=== PATIENT | female | born 1975 | race Caucasian/White ===

== ENCOUNTER 2017-04-08 01:19 | Inpatient (IN) | payer OTHER ==
[~2017-04-08] VITALS: Ht 165.1 cm; Wt 110.7 kg
[2017-04-08 02:00] VITALS: BP_SYST 139
[2017-04-08] MEDS ORDERED: ONDANSETRON HCL 4 MG/2 ML VIAL IVP ONE (02:15)
[2017-04-08] MEDS ORDERED: KETOROLAC TROMETHAMINE 30 MG VIAL IVP ONE (02:15)
[2017-04-08] MEDS ORDERED: NACL 0.9% 1,000 ML IV ONE ×2 (02:15→03:30)
[2017-04-08 02:53] LABS: BASOPHILS # (AUTO) 0.2 K/uL (0.0-0.2); BASOPHILS % (AUTO) 2.8 % (0.0-2.0); EOSINOPHILS # (AUTO) 0.1 K/uL (0.0-0.4); EOSINOPHILS % (AUTO) 1.6 % (0.0-4.0); HEMATOCRIT 42.4 % (36-48); HEMOGLOBIN 14.2 g/dL (12.0-16.0); LYMPHOCYTES % (AUTO) 27.1 % (20.5-51.5); MEAN CORPUSCULAR HEMOGLOBIN 30 pg (27-31); MEAN CORPUSCULAR HGB CONC 34 % (32-36); MEAN CORPUSCULAR VOLUME 90 fL (79.0-98.0); MONOCYTES # (AUTO) 0.5 K/uL (0.0-1.0); MONOCYTES % (AUTO) 6.5 % (1.7-9.3); NEUTROPHILS # (AUTO) 4.5 K/uL (1.8-7.7); PLATELET COUNT (AUTO) 316 K/uL (130-430); RED BLOOD CELL COUNT(AUTO) 4.72 MIL/uL (4.2-6.2); RED CELL DISTRIBUTION WIDTH 11.8 % (9.0-15.0); WHITE BLOOD COUNT (AUTO) 7.3 K/uL (4.8-10.8)
[2017-04-08 02:55] LABS: BILIRUBIN,URINE NEGATIVE (NEGATIVE); BLOOD, URINE 2+ (NEGATIVE); CLARITY/URINE CLEAR (CLEAR); COLOR,URINE YELLOW (YELLOW); GLUCOSE,URINE 3+ (NEGATIVE); KETONES,URINE NEGATIVE (NEGATIVE); LEUKOCYTE ESTERASE ,URINE NEGATIVE (NEGATIVE); NITRITE, URINE NEGATIVE (NEGATIVE); PH,URINE 6.5 (5.0-8.0); PROTEIN URINE NEGATIVE (NEGATIVE); UROBILINOGEN,URINE 0.2 (0.2-1.0)
[2017-04-08 03:05] LABS: CALCIUM 9.2 mg/dL (8.4-11.0); CREATININE 1.08 mg/dL (0.55-1.30); POTASSIUM 4.3 mmol/L (3.5-5.1)
[2017-04-08 03:07] LABS: PROTHROMBIN TIME 10.4 SECS (9.5-12.5)
[2017-04-08 03:08] LABS: ALBUMIN 3.4 g/dL (3.4-4.8); TOTAL BILIRUBIN 0.4 mg/dL (0.0-1.0)
[2017-04-08 03:16] LABS: BACTERIA,URINE FEW /HPF (None Seen); MUCUS,URINE None Seen /LPF (None Seen); YEAST,URINE Rare /HPF (None Seen)
[2017-04-08 03:17] LABS: BARBITURATE, URINE NEGATIVE (NEG <=200); BENZODIAZEPINE, URINE NEGATIVE (NEG <=150); CANNABINOID, URINE NEGATIVE (NEG <=50); COCAINE, URINE NEGATIVE (NEG <=150); METHAMPHETAMINES SCREEN,URINE POSITIVE (NEG <=500); OPIATE, URINE NEGATIVE (NEG <=100); PHENCYCLIDINE SCREEN,URINE NEGATIVE (NEG <=25); UR TRICYCLIC ANTIDEPRESSANTS NEGATIVE (NEG <=300); URINE AMPHETAMINE POSITIVE (NEG <=500); URINE METHADONE NEGATIVE (NEG <=200); URINE OXYCODONE SCREEN NEGATIVE (NEG <=100); URINE PROPOXYPHENE SCREEN NEGATIVE (NEG <=300)
[2017-04-08] MEDS ORDERED: LEVOFLOXACIN 500 MG/D5W 100 ML IV ONE (03:30)
[2017-04-08] MEDS ORDERED: INSULIN REGULAR, HUMAN 10 UNITS/0.1 ML INJ IVP ONE (03:30)
[2017-04-08 05:01] VITALS: BP_SYST 142
[2017-04-08] MEDS: cefTRIAXone 1 GM IVPB PREMIX 50 ML IV SCH (06:00)
[2017-04-08] MEDS ORDERED: cefTRIAXone 1 GM IVPB PREMIX 50 ML IV ONE (06:01)
[2017-04-08] MEDS: NACL 0.9% 1,000 ML IV SCH ×3 (06:22→17:50)
[2017-04-08] MEDS: INSULIN REGULAR, HUMAN 100 UNITS/ML, 10 ML VIAL (novoLIN R) SUBCUT PRN ×4 (06:25→21:48)
[2017-04-08] MEDS ORDERED: INSULIN REGULAR, HUMAN 100 UNITS/ML, 10 ML VIAL SUBCUT ONE ×2 (06:30→10:45)
[2017-04-08 08:00] VITALS: BP_SYST 130
[2017-04-08] MEDS ORDERED: DIPHENHYDRAMINE INJ 50 MG/ML VIAL IVP PRN (10:45)
[2017-04-08] MEDS ORDERED: traMADol HCL HCL 50 MG TABLET (ULTRAM) PO PRN (11:00)
[2017-04-08 11:43] VITALS: BP_SYST 130
[2017-04-08 12:33] LABS: CALCIUM 9.2 mg/dL (8.4-11.0); CREATININE 0.86 mg/dL (0.55-1.30)
[2017-04-08 16:12] VITALS: BP_SYST 123
[2017-04-08] MEDS: ACETAMINOPHEN 325 MG TABLET PO PRN (16:46)
[2017-04-08] MEDS: metFORMIN HCL 500 MG TABLET PO SCH (18:54)
[2017-04-08 19:30] VITALS: BP_SYST 118
[2017-04-09 00:09] VITALS: BP_SYST 123
[2017-04-09] MEDS: NACL 0.9% 1,000 ML IV SCH ×2 (02:26→07:10)
[2017-04-09] MEDS: INSULIN REGULAR, HUMAN 100 UNITS/ML, 10 ML VIAL (novoLIN R) SUBCUT PRN ×6 (02:27→22:45)
[2017-04-09 04:20] VITALS: BP_SYST 138
[2017-04-09] MEDS: cefTRIAXone 1 GM IVPB PREMIX 50 ML IV SCH (05:28)
[2017-04-09] MEDS: traMADol HCL HCL 50 MG TABLET (ULTRAM) PO PRN ×2 (05:44→21:16)
[2017-04-09 07:38] LABS: BASOPHILS % (AUTO) 0.6 % (0.0-2.0); EOSINOPHILS # (AUTO) 0.1 K/uL (0.0-0.4); EOSINOPHILS % (AUTO) 2.7 % (0.0-4.0); HEMATOCRIT 38.9 % (36-48); HEMOGLOBIN 13.3 g/dL (12.0-16.0); LYMPHOCYTES # (AUTO) 1.8 K/uL (1.0-5.5); LYMPHOCYTES % (AUTO) 34.5 % (20.5-51.5); MEAN CORPUSCULAR HEMOGLOBIN 30 pg (27-31); MEAN CORPUSCULAR HGB CONC 34 % (32-36); MEAN CORPUSCULAR VOLUME 89 fL (79.0-98.0); MONOCYTES # (AUTO) 0.3 K/uL (0.0-1.0); MONOCYTES % (AUTO) 5.9 % (1.7-9.3); NEUTROPHILS % (AUTO) 56.3 % (40.0-70.0); PLATELET COUNT (AUTO) 273 K/uL (130-430); RED BLOOD CELL COUNT(AUTO) 4.36 MIL/uL (4.2-6.2); WHITE BLOOD COUNT (AUTO) 5.2 K/uL (4.8-10.8)
[2017-04-09 08:01] LABS: ALBUMIN 2.8 g/dL (3.4-4.8); CALCIUM 7.9 mg/dL (8.4-11.0); CREATININE 0.66 mg/dL (0.55-1.30); POTASSIUM 3.7 mmol/L (3.5-5.1); THYROID STIMULATING HORMONE 1.39 uIu/mL (0.34-4.82); TOTAL BILIRUBIN 0.2 mg/dL (0.0-1.0); TOTAL PROTEIN, SERUM 6.9 g/dL (6.4-8.3)
[2017-04-09] MEDS: metFORMIN HCL 500 MG TABLET PO SCH ×2 (08:02→17:52)
[2017-04-09 08:31] VITALS: BP_SYST 137
[2017-04-09 11:48] VITALS: BP_SYST 134
[2017-04-09] MEDS ORDERED: ATORVASTATIN 10 MG TABLET PO SCH (13:00)
[2017-04-09] MEDS ORDERED: ATORVASTATIN 10 MG TABLET PO ONE (14:30)
[2017-04-09 15:32] VITALS: BP_SYST 125
[2017-04-09 19:35] VITALS: BP_SYST 148
[2017-04-10 00:22] VITALS: BP_SYST 158
[2017-04-10] MEDS: INSULIN REGULAR, HUMAN 100 UNITS/ML, 10 ML VIAL (novoLIN R) SUBCUT PRN ×5 (03:03→21:09)
[2017-04-10 05:13] VITALS: BP_SYST 158
[2017-04-10] MEDS: cefTRIAXone 1 GM IVPB PREMIX 50 ML IV SCH ×2 (05:37→06:00)
[2017-04-10] MEDS: traMADol HCL HCL 50 MG TABLET (ULTRAM) PO PRN (06:12)
[2017-04-10 07:33] LABS: BASOPHILS % (AUTO) 0.6 % (0.0-2.0); EOSINOPHILS # (AUTO) 0.2 K/uL (0.0-0.4); EOSINOPHILS % (AUTO) 2.8 % (0.0-4.0); HEMATOCRIT 41.2 % (36-48); HEMOGLOBIN 13.8 g/dL (12.0-16.0); LYMPHOCYTES # (AUTO) 2.3 K/uL (1.0-5.5); LYMPHOCYTES % (AUTO) 35.8 % (20.5-51.5); MEAN CORPUSCULAR HEMOGLOBIN 30 pg (27-31); MEAN CORPUSCULAR HGB CONC 34 % (32-36); MEAN CORPUSCULAR VOLUME 89 fL (79.0-98.0); MONOCYTES # (AUTO) 0.4 K/uL (0.0-1.0); MONOCYTES % (AUTO) 5.8 % (1.7-9.3); NEUTROPHILS # (AUTO) 3.5 K/uL (1.8-7.7); PLATELET COUNT (AUTO) 276 K/uL (130-430); RED BLOOD CELL COUNT(AUTO) 4.61 MIL/uL (4.2-6.2); RED CELL DISTRIBUTION WIDTH 11.9 % (9.0-15.0); WHITE BLOOD COUNT (AUTO) 6.4 K/uL (4.8-10.8)
[2017-04-10 08:26] VITALS: BP_SYST 141
[2017-04-10] MEDS: ATORVASTATIN 10 MG TABLET PO SCH (08:55)
[2017-04-10] MEDS: metFORMIN HCL 500 MG TABLET PO SCH ×2 (08:56→17:37)
[2017-04-10 11:39] VITALS: BP_SYST 147
[2017-04-10] MEDS ORDERED: FLUCONAZOLE 200 MG TABLET (DIFLUCAN) PO ONE (11:45)
[2017-04-10 12:22] LABS: BASOPHILS % (AUTO) 0.6 % (0.0-2.0); EOSINOPHILS # (AUTO) 0.1 K/uL (0.0-0.4); EOSINOPHILS % (AUTO) 2.1 % (0.0-4.0); HEMOGLOBIN 14.2 g/dL (12.0-16.0); LYMPHOCYTES # (AUTO) 1.7 K/uL (1.0-5.5); LYMPHOCYTES % (AUTO) 28.6 % (20.5-51.5); MEAN CORPUSCULAR HEMOGLOBIN 30 pg (27-31); MEAN CORPUSCULAR HGB CONC 34 % (32-36); MEAN CORPUSCULAR VOLUME 89 fL (79.0-98.0); MONOCYTES # (AUTO) 0.3 K/uL (0.0-1.0); MONOCYTES % (AUTO) 4.8 % (1.7-9.3); NEUTROPHILS # (AUTO) 3.8 K/uL (1.8-7.7); NEUTROPHILS % (AUTO) 63.9 % (40.0-70.0); PLATELET COUNT (AUTO) 268 K/uL (130-430); RED BLOOD CELL COUNT(AUTO) 4.71 MIL/uL (4.2-6.2); WHITE BLOOD COUNT (AUTO) 5.9 K/uL (4.8-10.8)
[2017-04-10 12:32] LABS: CALCIUM 8.6 mg/dL (8.4-11.0); CREATININE 0.64 mg/dL (0.55-1.30); POTASSIUM 3.7 mmol/L (3.5-5.1); TOTAL BILIRUBIN 0.4 mg/dL (0.0-1.0); TOTAL PROTEIN, SERUM 7.1 g/dL (6.4-8.3)
[2017-04-10 19:10] VITALS: BP_SYST 126
[2017-04-11 00:52] VITALS: BP_SYST 136
[2017-04-11] MEDS: INSULIN REGULAR, HUMAN 100 UNITS/ML, 10 ML VIAL (novoLIN R) SUBCUT PRN ×6 (03:34→22:13)
[2017-04-11] MEDS: ACETAMINOPHEN 325 MG TABLET PO PRN ×2 (03:43→19:26)
[2017-04-11 04:06] VITALS: BP_SYST 149
[2017-04-11] MEDS: cefTRIAXone 1 GM IVPB PREMIX 50 ML IV SCH (06:00)
[2017-04-11] MEDS: metFORMIN HCL 500 MG TABLET PO SCH ×2 (08:00→18:09)
[2017-04-11] MEDS: FLUCONAZOLE 200 MG TABLET (DIFLUCAN) PO SCH (09:00)
[2017-04-11] MEDS: ATORVASTATIN 10 MG TABLET PO SCH (09:00)
[2017-04-11 12:00] VITALS: BP_SYST 109
[2017-04-11 16:00] VITALS: BP_SYST 145
[2017-04-11 20:00] VITALS: BP_SYST 144
[2017-04-12] VITALS: BP_SYST 141
[2017-04-12] MEDS: INSULIN REGULAR, HUMAN 100 UNITS/ML, 10 ML VIAL (novoLIN R) SUBCUT PRN ×3 (02:58→10:58)
[2017-04-12 04:00] VITALS: BP_SYST 136
[2017-04-12] MEDS: ATORVASTATIN 10 MG TABLET PO SCH (08:23)
[2017-04-12] MEDS: FLUCONAZOLE 200 MG TABLET (DIFLUCAN) PO SCH (08:23)
[2017-04-12] MEDS: metFORMIN HCL 500 MG TABLET PO SCH (08:23)
[2017-04-12 08:25] VITALS: BP_SYST 127
[2017-04-12 12:00] VITALS: BP_SYST 106
[2017-04-12 15:39] VITALS: BP_SYST 145
[2017-04-12 16:00] VITALS: BP_SYST 116
[2017-04-12] MEDS ORDERED: INSU100V7 SUBCUT (16:42)
[2017-04-12] MEDS ORDERED: METF1000 PO (16:43)
[2017-04-12] MEDS ORDERED: GLIP5TAB13 PO (16:43)
[2017-04-12] MEDS ORDERED: LIP10 PO (16:44)
== END 2017-04-12 17:05 | disposition home health service (06) | DRG 420 ==
LOC: SED 01:19 → STU 04:30 → SMU 22:14
PROVIDERS: ADMIT Internal Medicine; ATTEND Internal Medicine
DX: E11.00 Type 2 diabetes mellitus with hyperosmolarity without nonketotic hyperglycemic-hyperosmolar coma (NKHHC) (principal); N39.0 Urinary tract infection, site not specified; E87.1 Hypo-osmolality and hyponatremia; Z68.41 Body mass index [BMI] 40.0-44.9, adult; L80 Vitiligo; F17.200 Nicotine dependence, unspecified, uncomplicated; E78.5 Hyperlipidemia, unspecified; E66.01 Morbid (severe) obesity due to excess calories; F15.10 Other stimulant abuse, uncomplicated; F19.10 Other psychoactive substance abuse, uncomplicated; F12.90 Cannabis use, unspecified, uncomplicated; F41.1 Generalized anxiety disorder; F32.9 Major depressive disorder, single episode, unspecified; Z71.3 Dietary counseling and surveillance; Z83.3 Family history of diabetes mellitus
CPT/HCPCS: 36415; 70450-TC; 70551; 80048; 80053; 80061; 80307; 81000-TC; 82140-TC; 82962; 83036; 84443-TC; 84703; 85025; 85610-TC; 85730-TC; 96375; 97116-GP; 99285; J0696; J1815; J1885; J1956; J2405; J7030; J7050